=== PATIENT | female | born 1955 | race Caucasian/White ===

== ENCOUNTER 2024-07-26 11:52 | Outpatient (AMB) | payer MEDICARE, SELFPAY ==
[2024-07-26 12:12] VITALS: BP 180/100; PULSE 75; RESP 19; TEMP 36.6; O2SAT 95; BMI 45.8
--- NOTE | 2024-07-26 12:12 | PD.ORTHCLVIS ---
Vital signs 07/26/24 12:12 Height 1.63 m Height Method Stated Weight 121.166 kg Weight Measurement Method Standing Scale BMI 45.8 BP 180/100 H Blood Pressure Source Automatic Cuff Blood Pressure Location Right Upper Arm Position Sitting Respiration 19 Pulse 75 Pulse Source Monitor Temp 97.8 F Temp Source Temporal Artery Scan Pulse Oximetry (%) 95 Oxygen Delivery Method Room Air Med/Allergies Allergies & Medications Allergies No Known Allergies Allergy (Verified 07/26/24 12:15) Medication Reconciliation lisinopril 40 mg tablet 40 mg PO QDAY 07/26/24 [History Confirmed 07/26/24] Subjective Visit Visit for: new patient and knee Immunization / Flu Flu Vaccine in the Last 12 Months: Yes Flu Vaccine Exclusion Criteria: Already Received History of Present Illness Chief complaint: BILATERAL KNEE PAIN Eden is a pleasant 68-year-old female with bilateral knee pain and bilateral knee arthritis. It is of significant severity. She is severe lymphedema and is morbidly obese. She has tried Tylenol but has not had any injections. Pain Pain level (0-10): 10 Pain duration: ALL DAY Pain location: inside (medial), outside (lateral), anterior and posterior Pain quality: sharp Pain timing: night, increases with activity and stairs Associated signs & symptoms: stiffness Ambulatory data Ambulatory device: cane Treatments Improvement with previous injections: No Improvement with PT: No Improvement with NSAIDS: n/a Review of Systems Review of Systems: All systems negative unless otherwise noted in HPI. Exam Exam Patient is in no acute distress and is cooperative with the examination today. Breathing is nonlabored. In no respiratory distress. Bilateral extremities were evaluated and demonstrates sensation intact to light touch. Palpable pedal pulses are present. He has significant lymphedema bilaterally Bilateral hips were examined. The patient has no pain with log roll of the hips. Internal rotation to 30 degrees and external rotation to 30 degrees is painless. Negative FADIR. The left knee was examined. The left knee is in [varus] alignment. Range of motion from [0-115] degrees. Knee is stable to varus and valgus as well as AP translation with <5mm. Patient has a [negative] McMurrays. There is [no] pain with patellofemoral compression and [no] crepitus noted. The knee is [tender] to palpation [medially]. The right knee was also examined. The right knee is in [varus] alignment. Range of motion from [0-120] degrees. Knee is stable to varus and valgus as well as AP translation with <5mm. Patient has a [negative] McMurrays. There is [no] pain with patellofemoral compression and [no] crepitus noted. The knee is [tender] to palpation [medially]. Assessment and Plan Problem List (1) Degenerative arthritis of knee, bilateral: Status: Acute Plan: Patient is a pleasant 68-year-old female with bilateral knee pain and bilateral knee arthritis. He does have lymphedema and morbidly obese and is not a candidate for total knee replacement this time. We thus could recommend continued conservative treatment. 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 Recommend Tylenol, Voltaren cream, and bilateral knee injections today. Recommend knee cortisone injections as patient would like to proceed with conservative treatment at this time. The risks and benefits of the procedure were reviewed with the patient and patient gave verbal consent to continue with the procedure. Procedure: performed by Dr. Ackerman Using sterile technique the Bilateral knees were thoroughly prepped with alcohol, and approximately 1 cc of Kenalog 40 mg/mL and 4 cc of 1% lidocaine was injected into each knee without resistance into the medial tibial femoral joint space. The patient tolerated the procedure. Advanced Care Planning Discussion Advance care planning discussed with:: patient Office Procedures GNS Level of Care Nursing/Assessment Patient Status: Established Patient Nursing Assessment/Reassesment: Medication Reconciliation, Update PMH in EMR and Vital Signs Coordination of Care: Complex Care and Chronic Disease 1-5, Education Complex Pt/Fam, Consent,records obtained, informed consent, Results/Orders obtained and Staff clarify orders Established Patient Charge Established Patient Point Assignment: 95 Established Patient Point Charge: EP Level 3 (80-115) Surgical Proc/IM SQ injection Major Surgical Procedure: Yes (KNEE INJECTION ) Medication Given Medication Given Medication Given: Yes Documented Dose Given: 8 Route: Infiitration Medication Given Medication Given Medication Given: Yes Documented Dose Given: 2 Route: Infiitration Office Meds Xylocaine 10 mg/mL (1 %) injection solution Performing Provider: Tom Ackerman MD Performing Location: [facility] Administered by: Tom Ackerman MD on 07/26/24 12:19 Dose Route Admin Location Dispensed Lot Number Expiration Date [employer] 40 mL Infiltration 40 mL [id number] [employer] triamcinolone acetonide 40 mg/mL suspension for injection Performing Provider: Tom Ackerman MD Performing Location: [facility] Administered by: Tom Ackerman MD on 07/26/24 12:19 Dose Route Admin Location Dispensed Lot Number Expiration Date [facility] [employer] 80 mg intra-articular 2 mL [id number] [employer] Past Medical History Past Medical History Have you ever been diagnosed with any of the following: Neurological Problems Migraine: Yes Cardiology Problems Hypercholesterolemia: Yes Congestive Heart Failure: No Cellulitis: Yes Hypertension: Yes Varicose Veins: Yes Respiratory Problems Chronic Obstructive Pulmonary Disease (COPD): No Pneumonia: Yes Sleep Apnea: Yes (cpap) Stomache/Intestinal Problems Obesity: Yes Genital/Urinary Problems Renal Disease: No Reproductive Problems Pelvic Inflammatory Disease: No Previous Pregnancies: Yes (3) Musculoskeletal Problems Arthritis: Yes Gout: Yes Degenerative Joint Disease: Yes Endocrine Problems Diabetes Mellitus Type 1: No Diabetes Mellitus Type 2: No Hypothyroidism: Yes Other Problems Hospitalization: Yes (childhood) Anesthesia Reactions: No MRSA: No Chicken Pox: Yes Measles: Yes Rubella ([place] Measles): Yes
== END 2024-07-26 14:07 | disposition home or self-care (01) ==
LOC: HODSRG 11:52
PROVIDERS: PCP Nurse Practitioner Family; Referring Provider Nurse Practitioner Family; Supervising Provider Orthopaedic Surgery Adult Reconstructive Orthopaedic Surgery; Visit Provider Orthopaedic Surgery Adult Reconstructive Orthopaedic Surgery
DX: M17.0 Bilateral primary osteoarthritis of knee (principal); M25.562 Pain in left knee; M25.561 Pain in right knee; I89.0 Lymphedema, not elsewhere classified; E66.01 Morbid (severe) obesity due to excess calories; Z68.42 Body mass index [BMI] 45.0-49.9, adult; Z98.84 Bariatric surgery status; I10 Essential (primary) hypertension; E03.9 Hypothyroidism, unspecified; E78.00 Pure hypercholesterolemia, unspecified
CPT/HCPCS: 20610; 99213; J3301; J3490; G0463

== ENCOUNTER 2024-10-29 10:01 | Outpatient (AMB) | payer MEDICARE, SELFPAY ==
[2024-10-29 11:05] VITALS: BP 172/100; PULSE 73; RESP 19; TEMP 36.6; O2SAT 95; BMI 46.7
--- NOTE | 2024-10-29 11:05 | ORTHONT_ITS ---
Vital signs 10/29/24 11:05 Height 1.63 m Height Method Stated Weight 124.058 kg Weight Measurement Method Standing Scale BMI 46.7 BP 172/100 H Blood Pressure Source Automatic Cuff Blood Pressure Location Right Upper Arm Position Sitting Respiration 19 Pulse 73 Pulse Source Monitor Temp 97.9 F Temp Source Temporal Artery Scan Pulse Oximetry (%) 95 Oxygen Delivery Method Room Air Med/Allergies Allergies & Medications Allergies No Known Allergies Allergy (Verified 10/29/24 11:06) Medication Reconciliation lisinopril 40 mg tablet 40 mg PO QDAY 07/26/24 [History Confirmed 10/29/24] Exam Exam Patient is in no acute distress and is cooperative with the examination today. Breathing is nonlabored. In no respiratory distress. Bilateral extremities were evaluated and demonstrates sensation intact to light touch. Palpable pedal pulses are present. He has significant lymphedema bilaterally Bilateral hips were examined. The patient has no pain with log roll of the hips. Internal rotation to 30 degrees and external rotation to 30 degrees is painless. Negative FADIR. The left knee was examined. The left knee is in [varus] alignment. Range of motion from [0-115] degrees. Knee is stable to varus and valgus as well as AP translation with <5mm. Patient has a [negative] McMurrays. There is [no] pain with patellofemoral compression and [no] crepitus noted. The knee is [tender] to palpation [medially]. The right knee was also examined. The right knee is in [varus] alignment. Range of motion from [0-120] degrees. Knee is stable to varus and valgus as well as AP translation with <5mm. Patient has a [negative] McMurrays. There is [no] pain with patellofemoral compression and [no] crepitus noted. The knee is [tender] to palpation [medially]. Assessment and Plan Problem List (1) Degenerative arthritis of knee, bilateral: Status: Acute Plan: Patient is a pleasant 68-year-old female with bilateral knee pain and bilateral knee arthritis. He does have lymphedema and morbidly obese and is not a candidate for total knee replacement this time. We thus could recommend continued conservative treatment. 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 Recommend Tylenol, Voltaren cream, and bilateral knee injections today. Recommend knee cortisone injections as patient would like to proceed with conservative treatment at this time. The risks and benefits of the procedure were reviewed with the patient and patient gave verbal consent to continue with the procedure. Procedure: performed by Dr. Ackerman Using sterile technique the Bilateral knees were thoroughly prepped with alcohol, and approximately 1 cc of Kenalog 40 mg/mL and 4 cc of 1% lidocaine was injected into each knee without resistance into the medial tibial femoral joint space. The patient tolerated the procedure. Advanced Care Planning Discussion Advance care planning discussed with:: patient Office Procedures GNS Level of Care Nursing/Assessment Patient Status: Established Patient Nursing Assessment/Reassesment: Medication Reconciliation, Update PMH in EMR and Vital Signs Coordination of Care: Complex Care and Chronic Disease 1-5, Consent,records obtained, informed consent, Education Simp Pt/Fam, Results/Orders obtained and Staff clarify orders Established Patient Charge Established Patient Point Assignment: 90 Established Patient Point Charge: EP Level 3 (80-115) MA Intake Visit Data Collection New Patient or Established: Established Patient (seen at [facility] within 3 years) Reason for Visit:: 3 MONTH KNEE INJECTION Seen by Clinical Staff ONLY (RN/MA): No Verbal consent obtained for Telemed visit?: No Transportation Coordinator Required: No PCP or OBGYN visit in last 3 months: Yes Hx Now: No Do You Feel Safe at Home: Yes Authorities Contacted: N/A Questionairres Past Medical History Past Medical History Have you ever been diagnosed with any of the following: Neurological Problems Migraine: Yes Cardiology Problems Hypercholesterolemia: Yes Congestive Heart Failure: No Cellulitis: Yes Hypertension: Yes Varicose Veins: Yes Respiratory Problems Chronic Obstructive Pulmonary Disease (COPD): No Pneumonia: Yes Sleep Apnea: Yes (cpap) Stomache/Intestinal Problems Obesity: Yes Genital/Urinary Problems Renal Disease: No Reproductive Problems Pelvic Inflammatory Disease: No Previous Pregnancies: Yes (3) Musculoskeletal Problems Arthritis: Yes Gout: Yes Degenerative Joint Disease: Yes Endocrine Problems Diabetes Mellitus Type 1: No Diabetes Mellitus Type 2: No Hypothyroidism: Yes Other Problems Hospitalization: Yes (childhood) Anesthesia Reactions: No MRSA: No Chicken Pox: Yes Measles: Yes Rubella ([place] Measles): Yes Subjective Visit Visit for: follow up visit Immunization / Flu Flu Vaccine in the Last 12 Months: No Flu Vaccine Exclusion Criteria: No Exclusion Criteria History of Present Illness Chief complaint: bilateral pain Patient is a 61-year-old female with bilateral knee pain who is morbidly obese with severe lymphedema. We thus recommended nonoperative treatment. She reports that she only had short relief with the last injection. She would like to try new injections today. We discussed again that she is not a operative candidate. Pain Pain level (0-10): 8 Pain duration: ALL DAY Pain quality: sharp, dull and aching Associated signs & symptoms: numbness Ambulatory data Ambulatory device: walker Treatments Improvement with previous injections: No Improvement with PT: No Improvement with NSAIDS: no Review of Systems Review of Systems: All systems negative unless otherwise noted in HPI.
== END 2024-10-29 11:33 | disposition home or self-care (01) ==
LOC: HODSRG 10:01
PROVIDERS: PCP Nurse Practitioner Family; Referring Provider Nurse Practitioner Family; Supervising Provider Orthopaedic Surgery Adult Reconstructive Orthopaedic Surgery; Visit Provider Orthopaedic Surgery Adult Reconstructive Orthopaedic Surgery
DX: M17.0 Bilateral primary osteoarthritis of knee (principal); M25.562 Pain in left knee; M25.561 Pain in right knee; I89.0 Lymphedema, not elsewhere classified; E66.01 Morbid (severe) obesity due to excess calories; Z68.42 Body mass index [BMI] 45.0-49.9, adult; I10 Essential (primary) hypertension; E78.00 Pure hypercholesterolemia, unspecified; E03.9 Hypothyroidism, unspecified
CPT/HCPCS: 20610; 99213; J3301; J3490; G0463